=== PATIENT | female | born 1985 | race Caucasian/White ===

== ENCOUNTER → 2020-10-16 12:18 | Outpatient (BNVA) | payer OTHER, SELFPAY | PROVIDERS: PCP Nurse Practitioner Family; Visit Provider Surgery ==

== ENCOUNTER 2020-10-24 06:20 | Day surgery (SDC) | payer OTHER, SELFPAY ==
--- NOTE | 2020-10-23 17:43 | MHC.SHP ---
Pre-Procedural Eval Section B Chief Complaint: reflux Allergies: Allergies Allergy/AdvReac Type Severity Reaction Status Date / Time No Known Allergies Allergy Verified 10/16/20 13:54 Plan I have reviewed the history and physical and performed a pertinent physical examination on my patient. No changes have occurred unless specified.
[2020-10-24 06:45] VITALS: BP 130/85; PULSE 79; RESP 17; TEMP 36.2; O2SAT 97; BMI 51.7
--- NOTE | 2020-10-24 07:11 | HO.ANESPROP2 ---
HPI - Anesthesia Eval Consult details Narrative: 35 yo female patient here for EGD PMFSH Active Problems Active Problems: All Active Problems (Updated 10/16/20 @ 13:09 by Gela Daniel MD) Hx of laparoscopic gastric banding (Acute) Morbid obesity due to excess calories (Acute) BMI 50.0-59.9, adult (Acute) Preoperative examination (Acute) Shortness of breath (Acute) Past Medical History Medical History Morbid obesity due to excess calories Polycystic ovarian syndrome Family History Family History Mother No problems noted. Father Hypertension Brother Hypertension Son No problems noted. Son No problems noted. Family history of problems with anesthesia: No Surgical History Surgical History H/O vein stripping History of tubal ligation Hx of section Hx of colonoscopy Hx of laparoscopic gastric banding Hx of wisdom tooth extraction History of Problems with Anesthesia: No Social History Social History Alcohol intake: current Alcohol intake frequency: does not drink Smoking Status: Never smoker Use of substances other than those prescribed or required for medical reasons: No Advance Directives: No Advance Directives Information Provided: Yes Recently lost weight without trying: No Meds Allergies Allergy/AdvReac Type Severity Reaction Status Date / Time No Known Allergies Allergy Verified 10/16/20 13:54 Home Medications Medication Instructions Recorded Confirmed Last Taken Type levonorgestrel 20 mcg/24 hours (6 INTRAUTERINE 10/16/20 10/16/20 Unknown History yrs) 52 mg intrauterine device Exam Exam Date and Time: October 24, 2020 0711 Height,Weight and Vital Signs: Height 5 ft 8 in Weight 154.221 kg Last Vital Signs Temp 97.2 F 10/24/20 06:45 Pulse 79 10/24/20 06:45 Resp 17 10/24/20 06:45 BP 130/85 10/24/20 06:45 Pulse Ox 97 10/24/20 06:45 Pertinent Lab Results Pertinent Lab Results: Lab Results 10/24/20 Range/Units 06:40 COVID-19 ([facility]) Negative (Negative) COVID-19 Clin Com See Note Airway Mallampati Class: III TM Dist: >3cm Neck ROM: Full Heart: RRR Lungs: CTAB Assessment and Plan Assessment Anesthesia Assessment: Anesthesia Plan Discussed and Chart Reviewed Final Anesthetic Review NPO: Yes ASA Class: III Final Preanesthetic Review: No Changes in Pt Med Stat, Meds/Allgs Chart Reviewed, Consent Obtained/Reviewed and Anes Risks/Benef Reviewed Patient Risk: Intermediate Procedure Risk: Low Assessment/Block/Sedation in SS: Assess/Block/Sedation-SS Anesthetic Plan Anesthetic Plan: MAC: Disposition: Standard PACU
[2020-10-24 07:12] LABS: COVID-19 Test Negative (Negative)
--- NOTE | 2020-10-24 07:57 | PM.OP ---
Brief Operative Note Date of Service: 10/24/20 Pre-op diagnosis: Morbid obesity, history of gastric band with weight gain Post-op diagnosis: other (Normal gastric band , antral gastritis) Procedure: Esophagogastroduodenoscopy, antral biopsy x2 Implants: None Surgeon: Gela Daniel MD Anesthesia: MAC Estimated blood loss (mL): 0 Pathology: other (Antrum) Condition: stable Disposition: PACU
--- NOTE | 2020-10-24 08:15 | W.PM.OPN ---
Operative Note Operative Note Date of Service: 10/24/20 Narrative: Patient was brought into the endoscopy suite placed on stretch in the left lateral decubitus position. A safety time-out was performed. A bite block was placed between the teeth. Propofol was administered by the nurse door serviceman. Once the patient was adequately sedated a gastroscope was placed into the posterior oropharynx and passed down the esophagus evaluate esophageal mucosa which was normal. The GE junction was located at 34 cm from the incisors. Gastric band was located at 36 cm from the incisors. There was no evidence of gastric band erosion or ulceration of the mucosa. There was no evidence of gastric band slippage. The gastroscope was passed distally and then retroflexed there was no evidence again of gastric band erosion. The mucosa was healthy and pink. The gastroscope was passed to the pre-pyloric region. There was some evidence of granularity and linear erythema in the antrum which was biopsied x2 and sent for pathology. The gastroscope was passed through the pylorus down to the 3rd portion of the duodenum all of which was normal. All of these portions of the upper endoscopy were document using photo documentation. The gastroscope was retracted back in the stomach stomach was desufflated and the gastroscope was removed without difficulty. Patient was awake and in stable condition prior to transfer to the recovery room there, were no complications.
[2020-10-24 08:25] VITALS: BP 115/77; PULSE 104; RESP 16; TEMP 36.2; O2SAT 95
[2020-10-24 08:41] VITALS: BP 121/82; PULSE 90; RESP 18; TEMP 36.2; O2SAT 98
== END 2020-10-24 09:10 | disposition home or self-care (01) ==
PROVIDERS: PCP Nurse Practitioner Family; Visit Provider Surgery
PROC: 0DJ08ZZ Inspection of Upper Intestinal Tract, Via Natural or Artificial Opening Endoscopic (ICD-10-PCS; CPT 43235; principal; 2020-10-24 07:30)
DX: K21.9 Gastro-esophageal reflux disease without esophagitis (principal); K29.50 Unspecified chronic gastritis without bleeding; R06.02 Shortness of breath; Z98.84 Bariatric surgery status; E66.01 Morbid (severe) obesity due to excess calories; Z68.43 Body mass index [BMI] 50.0-59.9, adult; Z98.51 Tubal ligation status
CPT/HCPCS: 43239; 36415; 87635; 88305; 88342; J3010

== ENCOUNTER 2020-10-29 08:10 | Outpatient (REF) | payer OTHER, SELFPAY ==
--- NOTE | ~2020-10-29 | XR_ITS ---
EXAMINATION: XR CHEST CLINICAL INFORMATION: Shortness of breath COMPARISON: None TECHNIQUE: 2 views of the chest were obtained. FINDINGS: The cardiac and mediastinal contours are normal. The lungs are clear. There is no pleural effusion or pneumothorax. Bony structures are unremarkable. Gastric lap band is noted. XR/XR chest 2V IMPRESSION: No evidence for acute disease in the chest.
--- NOTE | 2020-10-29 08:18 | ECG_ITS ---
Test Reason : SOB Blood Pressure : / mmHG Vent. Rate : 064 BPM Atrial Rate : 064 BPM P-R Int : 150 ms QRS Dur : 078 ms QT Int : 384 ms P-R-T Axes : 033 025 022 degrees QTc Int : 396 ms Normal sinus rhythm with sinus arrhythmia Normal ECG No previous ECGs available Referred By: Gela Daniel Electronically Signed By:MELI CASEY
[2020-10-29 09:22] LABS: MANUAL DIFF FLAG NO
[2020-10-29 09:30] LABS: Basophils Percent Auto 0.4 % (0-2); Eosinophils Absolute Auto 0.2 X10*3/uL (0.0-0.4); Eosinophils Percent Auto 2.2 % (0-4); Hematocrit 43.3 % (37-47); Hemoglobin 13.9 g/dl (12.0-16.0); Imm Gran Abs Auto 0.03 X10*3/uL (0.00-0.03); Imm Gran Pct Auto 0.4 % (0.0-0.4); Lymphocytes Absolute Auto 1.6 X10*3/uL (1.2-4.9); Lymphocytes Percent Auto 22.6 % (20-40); Mean Corpuscular HGB Conc 32.1 g/dl (31.0-35.0); Mean Corpuscular Hemoglobin 27.3 pg (27.0-33.0); Mean Corpuscular Volume 84.9 fL (80-98); Mean Platelet Volume 11.3 fL (9.4-12.3); Monocytes Absolute Auto 0.4 X10*3/uL (0.1-1.2); Monocytes Percent Auto 5.6 % (2-11); Neutrophils Absolute Auto 4.9 X10*3/uL (2.0-8.3); Neutrophils Percent Auto 68.8 % (45-73); Platelet Count 253 X10*3/uL (160-400); Red Cell Distribution Width 12.5 % (11.0-16.0); White Blood Count 7.2 X10*3/uL (4.8-10.8)
[2020-10-29 09:55] LABS: Alanine Aminotransferase 22 U/L (0-31); Albumin Level 4.1 g/dL (3.5-5.0); Alkaline Phosphatase 60 U/L (39-117); Anion Gap 9 (12-20); Aspartate Amino Transferase 21 U/L (5-31); Bilirubin Total 0.9 mg/dL (0.0-1.0); Blood Urea Nitrogen 13 mg/dL (9-16); Calcium 9.4 mg/dL (8.4-10.2); Carbon Dioxide 30 mmol/L (22-29); Chloride 103 mmol/L (96-108); Cholesterol 130 mg/dL; Estimated Glomerular Filt Rate > 60; Glucose Fasting 83 mg/dL (60-99); HDL Cholesterol 37 mg/dL; Iron 73 mcg/dL (30-160); LDL Cholesterol Calculated 79 mg/dl; Percent Iron Saturation 26 % (15-50); Potassium 4.2 mmol/L (3.3-5.1); Sodium 138 mmol/L (135-145); Total Iron Binding Capacity 281 mcg/dL (228-428); Total Protein 6.9 g/dL (6.5-8.0); Triglycerides 72 mg/dL; Unsaturated Iron Binding 208 ug/dL
[2020-10-29 10:06] LABS: Thyroid Stimulating Hormone 1.53 uIU/mL (0.32-4.0); Vitamin D 25-OH Total 18.9 ng/mL (>30)
[2020-10-29 10:07] LABS: Estimated Average Glucose 94 mg/dL; Hemoglobin A1C 150.5218 umol/L; Hemoglobin A1c % 4.9 %
[2020-10-29 10:51] LABS: Vitamin B12 539 pg/mL (200-900)
[2020-10-30 15:17] LABS: H Pylori Breath Test NOT DETECTED (NOT DETECTED)
[2020-10-30 17:16] LABS: Calcium (PTHI) 9.4 mg/dL (8.6-10.2); PTHI 46 pg/mL (14-64)
[2020-10-31 17:31] LABS: Zinc 62 mcg/dL (60-130)
[2020-11-01 12:51] LABS: Vitamin B1 9 nmol/L (8-30)
[2020-11-02 10:37] LABS: Vitamin A 32 mcg/dL (38-98)
== END 2020-10-29 08:11 | disposition home or self-care (01) ==
LOC: HO.LAB 08:10
PROVIDERS: PCP Nurse Practitioner Family; Visit Provider Surgery
DX: Z01.818 Encounter for other preprocedural examination (principal); K91.2 Postsurgical malabsorption, not elsewhere classified; R06.02 Shortness of breath; Z90.3 Acquired absence of stomach [part of]
CPT/HCPCS: 36415; 71046; 80053; 80061; 82306; 82607; 83013; 83036; 83540; 83970; 84425; 84443; 84590; 84630; 85025; 86140; 93005

== ENCOUNTER → 2020-11-02 08:43 | Outpatient (BNVA) | payer OTHER, SELFPAY | PROVIDERS: PCP Nurse Practitioner Family; Visit Provider Surgery ==

== ENCOUNTER → 2020-11-29 08:15 | Outpatient (BNVA) | payer OTHER, SELFPAY | PROVIDERS: PCP Nurse Practitioner Family; Visit Provider Dietitian, Registered | DX: E66.01 Morbid (severe) obesity due to excess calories (principal); Z68.43 Body mass index [BMI] 50.0-59.9, adult | CPT/HCPCS: 97802 ==

== ENCOUNTER → 2020-12-28 15:04 | Outpatient (BNVA) | payer OTHER, SELFPAY | PROVIDERS: PCP Nurse Practitioner Family; Referring Provider Nurse Practitioner Family; Visit Provider Surgery ==

== ENCOUNTER 2021-01-23 08:06 | Outpatient (REF) | payer OTHER, SELFPAY ==
[2021-01-23 11:51] LABS: Vitamin D 25-OH Total 32.5 ng/mL (>30)
[2021-01-28 04:06] LABS: Vitamin A 28 mcg/dL (38-98)
== END 2021-01-23 08:07 | disposition home or self-care (01) ==
LOC: HO.HMGCLDS 08:06
PROVIDERS: PCP Nurse Practitioner Family; Visit Provider Surgery
DX: Z01.818 Encounter for other preprocedural examination (principal); E50.9 Vitamin A deficiency, unspecified; E55.9 Vitamin D deficiency, unspecified
CPT/HCPCS: 36415; 82306; 84590

== ENCOUNTER → 2021-01-28 11:07 | Outpatient (BNVA) | payer OTHER, SELFPAY | PROVIDERS: PCP Nurse Practitioner Family; Visit Provider Surgery ==

== ENCOUNTER → 2021-02-04 14:44 | Outpatient (BNVA) | payer OTHER, SELFPAY | PROVIDERS: PCP Nurse Practitioner Family; Visit Provider Surgery | DX: Z01.818 Encounter for other preprocedural examination (principal); R06.02 Shortness of breath ==

== ENCOUNTER → 2021-02-08 13:34 | Outpatient (BNVA) | payer OTHER, SELFPAY | PROVIDERS: PCP Nurse Practitioner Family; Visit Provider Physician Assistant ==

== ENCOUNTER 2021-02-14 06:16 | Inpatient (IN) | payer OTHER, SELFPAY ==
--- NOTE | 2021-02-04 15:25 | ECG_ITS ---
Test Reason : SOB Blood Pressure : / mmHG Vent. Rate : 082 BPM Atrial Rate : 082 BPM P-R Int : 144 ms QRS Dur : 082 ms QT Int : 372 ms P-R-T Axes : 042 042 043 degrees QTc Int : 434 ms Normal sinus rhythm with sinus arrhythmia Normal ECG When compared with ECG of 29-OCT-2020 08:39, No significant change was found Referred By: Gela Daniel Electronically Signed By:MERNA WILSON MD
[2021-02-04 16:05] LABS: MANUAL DIFF FLAG NO
[2021-02-04 16:08] LABS: Basophils Percent Auto 0.4 % (0-2); Eosinophils Absolute Auto 0.1 X10*3/uL (0.0-0.4); Eosinophils Percent Auto 1.1 % (0-4); Hematocrit 41.3 % (37-47); Hemoglobin 13.6 g/dl (12.0-16.0); Imm Gran Abs Auto 0.02 X10*3/uL (0.00-0.03); Imm Gran Pct Auto 0.2 % (0.0-0.4); Lymphocytes Percent Auto 21.8 % (20-40); Mean Corpuscular HGB Conc 32.9 g/dl (31.0-35.0); Mean Corpuscular Hemoglobin 28.3 pg (27.0-33.0); Mean Platelet Volume 11.2 fL (9.4-12.3); Monocytes Absolute Auto 0.5 X10*3/uL (0.1-1.2); Monocytes Percent Auto 5.1 % (2-11); Neutrophils Absolute Auto 6.4 X10*3/uL (2.0-8.3); Neutrophils Percent Auto 71.4 % (45-73); Platelet Count 239 X10*3/uL (160-400)
[2021-02-04 16:16] LABS: Glucose Urine UA NEG (NEG); Leukocyte Esterase Urine TRACE (NEG); Nitrite Urine NEG (NEG); Specific Gravity - Urine >= 1.030 (1.005-1.025); UACC Culture Trigger YES; Urine Blood NEG (NEG); Urine Ketones NEG (NEG); Urine Protein NEG (NEG-TRACE)
[2021-02-04 16:19] LABS: Appearance Urine HAZY; Color Urine YELLOW; UPreg QC Valid YES; Urine Pregnancy NEGATIVE (NEGATIVE)
[2021-02-04 16:24] LABS: INTERNATIONAL NORM RATIO 1.2 (0.9-1.1); Prothrombin Time 13.2 SEC (9.9-13.0)
[2021-02-04 16:26] LABS: Albumin Level 4.2 g/dL (3.5-5.0); Anion Gap 12 (12-20); Blood Urea Nitrogen 10 mg/dL (9-16); Calcium 9.1 mg/dL (8.4-10.2); Carbon Dioxide 27 mmol/L (22-29); Chloride 105 mmol/L (96-108); Estimated Glomerular Filt Rate > 60; Glucose Random 86 mg/dL (60-115); Potassium 4.1 mmol/L (3.3-5.1); Sodium 140 mmol/L (135-145)
[2021-02-04 16:27] LABS: Partial Thromboplastin Time 34.8 SEC (24.1-38.0)
[2021-02-04 16:42] LABS: Bacteria Urine TRACE /LPF; Mucus Urine 2+ /LPF; Squamous Epithelial Cell Urine 3+ /LPF
[2021-02-06 13:17] VITALS: BMI 47.5
--- NOTE | 2021-02-13 09:46 | HO.ANESPROP2 ---
Documented by User: Aubrie Taylor NP 02/13/21 09:47 HPI - Anesthesia Eval Consult details Narrative: 35yo F for Lap Band Removal Laparosopic,conversion to Gastrectomy Sleeve, EGD, Poss Diaphragmatic Hernia, Poss Ventral Hernia, Poss open PMFSH Active Problems Active Problems: All Active Problems (Updated 02/06/21 @ 13:20 by Laurie Dennis RN) Shortness of breath (Acute) Preoperative examination (Acute) BMI 50.0-59.9, adult (Acute) Mild depression (Acute) Vitamin D deficiency (Acute) Vitamin A deficiency (Acute) BMI 45.0-49.9, adult (Acute) Morbid obesity due to excess calories (Acute) Hx of laparoscopic gastric banding (Acute) Past Medical History Medical History COVID-19 vaccine series completed Morbid obesity due to excess calories Polycystic ovarian syndrome Family History Family History Mother No problems noted. Father Hypertension Brother Hypertension Son No problems noted. Son No problems noted. Family history of problems with anesthesia: No Surgical History Surgical History H/O vein stripping History of tubal ligation Hx of section Hx of colonoscopy Hx of laparoscopic gastric banding Hx of wisdom tooth extraction History of Problems with Anesthesia: No Social History Social History (Updated 02/04/21 @ 15:18 by Gela Daniel MD) Are you a primary manager progressive care to a significant other at home: No Do you presently have visiting nurse or other home services: No Alcohol intake: former Patient Tobacco Use Status: Never used Tobacco Use of substances other than those prescribed or required for medical reasons: Yes Substance Use Type Other:: advised to hold 3-5 days pre-op Substance Use Frequency: Occasionally Have you been hit, kicked, punched, or otherwise hurt by someone within the past year? If so, by whom?: No Are you DNR?: No Advance Directives: Yes Advance Directives Information Provided: Yes (states is [place] [facility] [place] Advance Directives on File: No Advance Directives Date on File: 02/14/21 Recently lost weight without trying: No Eating poorly because of decreased appetite: No Nutrition Risks: No Nutritional Risk Patient : No FDLMP: 02/02/21 : No Poor oral hygiene: No Meds Allergies Allergy/AdvReac Type Severity Reaction Status Date / Time No Known Allergies Allergy Verified 02/14/21 06:15 Home Medications Medication Instructions Recorded Confirmed Last Taken Type levonorgestrel 20 mcg/24 hours (6 20 mcg INTRAUTERINE CONT 10/16/20 02/06/21 Unknown History yrs) 52 mg intrauterine device (Mirena) Exam Exam Date and Time: February 13, 2021 0946 Height,Weight and Vital Signs: Height 5 ft 8 in Weight 141.974 kg Pertinent Lab Results Pertinent Lab Results: Laboratory Tests 02/04/21 02/04/21 02/04/21 15:31 15:31 15:31 WBC 9.0 RBC 4.80 Hgb 13.6 Hct 41.3 MCV 86.0 MCH 28.3 MCHC 32.9 RDW 13.0 Plt Count 239 MPV 11.2 Immature Gran % (Auto) 0.2 Neut % (Auto) 71.4 Lymph % (Auto) 21.8 Woodward % (Auto) 5.1 Eos % (Auto) 1.1 Baso % (Auto) 0.4 Lymph # (Auto) 2.0 Woodward # (Auto) 0.5 Eos # (Auto) 0.1 Baso # (Auto) 0.0 Abs Immat Gran (auto) 0.02 Absolute Neuts (auto) 6.4 Absolute Nucleated RBC 0.000 Nucleated RBC % (auto) 0.0 PT 13.2 H INR 1.2 H APTT 34.8 Sodium 140 Potassium 4.1 Chloride 105 Carbon Dioxide 27 Anion Gap 12 BUN 10 Creatinine 0.84 Estim Creat Clear Calc TNP Estimated GFR > 60 Random Glucose 86 Calcium 9.1 Albumin 4.2 Urine Color Urine Appearance Urine pH Ur Specific Lawn Urine Protein Urine Glucose (UA) Urine Ketones Urine Blood Urine Nitrite Ur Leukocyte Esterase Urine RBC Urine WBC Ur Squamous Epith Cells Urine Bacteria Urine Mucus Urine Test Blood Type Antibody Screen 02/04/21 02/04/21 02/04/21 15:31 15:40 15:40 WBC RBC Hgb Hct MCV MCH MCHC RDW Plt Count MPV Immature Gran % (Auto) Neut % (Auto) Lymph % (Auto) Woodward % (Auto) Eos % (Auto) Baso % (Auto) Lymph # (Auto) Woodward # (Auto) Eos # (Auto) Baso # (Auto) Abs Immat Gran (auto) Absolute Neuts (auto) Absolute Nucleated RBC Nucleated RBC % (auto) PT INR APTT Sodium Potassium Chloride Carbon Dioxide Anion Gap BUN Creatinine Estim Creat Clear Calc Estimated GFR Random Glucose Calcium Albumin Urine Color YELLOW Urine Appearance HAZY Urine pH 6.0 Ur Specific Lawn >= 1.030 H Urine Protein NEG Urine Glucose (UA) NEG Urine Ketones NEG Urine Blood NEG Urine Nitrite NEG Ur Leukocyte Esterase TRACE H Urine RBC 1-4 Urine WBC 10-14 H Ur Squamous Epith Cells 3+ Urine Bacteria TRACE Urine Mucus 2+ Urine Test NEGATIVE Blood Type O Positive Antibody Screen NEGATIVE Narrative Narrative: EKG 01/2021 Vent. Rate : 082 BPM ? ? Atrial Rate : 082 BPM ?? P-R Int : 144 ms? QRS Dur : 082 ms ? ? QT Int : 372 ms ? ? ? P-R-T Axes : 042 042 043 degrees ?? QTc Int : 434 ms ? Normal sinus rhythm with sinus arrhythmia Normal ECG When compared with ECG of 29-OCT-2020 08:39, No significant change was found Assessment and Plan Assessment Anesthesia Assessment: Chart Reviewed Final Anesthetic Review Family History of Problems with Anesthesia: No History of Problems with Anesthesia: No Documented by User: Tato Curry MD 02/14/21 08:21 [facility] Past Medical History Medical History COVID-19 vaccine series completed Morbid obesity due to excess calories Polycystic ovarian syndrome Family History Family History Mother No problems noted. Father Hypertension Brother Hypertension Son No problems noted. Son No problems noted. Surgical History Surgical History H/O vein stripping History of tubal ligation Hx of section Hx of colonoscopy Hx of laparoscopic gastric banding Hx of wisdom tooth extraction Social History Social History (Updated 02/04/21 @ 15:18 by Gela Daniel MD) Are you a primary manager progressive care to a significant other at home: No Do you presently have visiting nurse or other home services: No Alcohol intake: former Patient Tobacco Use Status: Never used Tobacco Use of substances other than those prescribed or required for medical reasons: Yes Substance Use Type Other:: advised to hold 3-5 days pre-op Substance Use Frequency: Occasionally Have you been hit, kicked, punched, or otherwise hurt by someone within the past year? If so, by whom?: No Are you DNR?: No Advance Directives: Yes Advance Directives Information Provided: Yes (states is -not on file [facility]-will bring DOS) Advance Directives on File: No Advance Directives Date on File: 02/14/21 Recently lost weight without trying: No Eating poorly because of decreased appetite: No Nutrition Risks: No Nutritional Risk Patient : No FDLMP: 02/02/21 : No Poor oral hygiene: No Meds Allergies Allergy/AdvReac Type Severity Reaction Status Date / Time No Known Allergies Allergy Verified 02/14/21 06:15 Home Medications Medication Instructions Recorded Confirmed Last Taken Type levonorgestrel 20 mcg/24 hours (6 20 mcg INTRAUTERINE CONT 10/16/20 02/06/21 Unknown History yrs) 52 mg intrauterine device (Mirena) Exam Airway Mallampati Class: I TM Dist: >3cm Neck ROM: Full Loose/Missing/Broken Teeth: No Assessment and Plan Assessment Anesthesia Assessment: Anesthesia Plan Discussed Final Anesthetic Review NPO: Yes ASA Class: III Final Preanesthetic Review: No Changes in Pt Med Stat, Meds/Allgs Chart Reviewed, Consent Obtained/Reviewed and Anes Risks/Benef Reviewed Patient Risk: High Procedure Risk: Intermediate Anesthetic Plan Anesthetic Plan: GA Disposition: Standard PACU
[2021-02-14] VITALS (11 sets, daily range): BP systolic 129–155; BP diastolic 69–93; PULSE 65–101; RESP 15–24; TEMP 36.1–36.7; O2SAT 93–99
--- NOTE | 2021-02-14 06:33 | MHC.SHP ---
Pre-Procedural Eval Section A Date of Service: 02/14/21 Section B Chief Complaint: Status post laparoscopic removal of gastric band.. Allergies: Allergies Allergy/AdvReac Type Severity Reaction Status Date / Time No Known Allergies Allergy Verified 02/14/21 06:15 Plan I have reviewed the history and physical and performed a pertinent physical examination on my patient. No changes have occurred unless specified.
[2021-02-14 06:38] LABS: COVID-19 Test Negative (Negative); IDNOW Serial# 9DD0AD1C
[2021-02-14] MEDS: Lactated Ringers 1,000 ML 100 ML IVCONT ×3 (06:43→19:27)
--- NOTE | 2021-02-14 08:45 | PM.OP ---
Brief Operative Note Date of Service: 02/14/21 Pre-op diagnosis: Morbid obesity, BMI 47.6, history of gastric band Post-op diagnosis: other (Same and hiatal hernia) Procedure: Laparoscopic removal of gastric banding, conversion to sleeve gastrectomy, hiatal hernia repair, Kaylah block, and intraoperative endoscopy Implants: covidien isis Surgeon: Gela Daniel MD Anesthesia: GETA Was an Foreign Language Instructor used for this Procedure?: No Foreign Language Instructor: Mima Mansfield Estimated blood loss (mL): 20 Pathology: other (Partial gastrectomy) Condition: stable Disposition: PACU
--- NOTE | 2021-02-14 08:46 | W.PM.OPN ---
Operative Note Operative Note Date of Service: 02/14/21 Narrative: Patient was brought into the operating room and placed on the operating room table in the supine position. General anesthesia was induced. Normal DVT prophylaxis was instituted and the patient received 2 grams of cefotetan preoperatively. The abdomen was then prepped and draped in the normal sterile fashion. A safety time-out was performed. A mixture of 1% lidocaine with epinephrine and ?% Marcaine plain was used to anesthetize the planned incision site in the left upper quadrant. A #11 scalpel was used to make a 5 mm left upper quadrant transverse incision through which a veress needle was placed. Three pops were heard going through the fascia. A saline drop test was used to confirm that the veress needle was intraabdominal. An optiview technique was then used to place a 5mm port in the left upper quadrant. A 5 mm 30 degree laproscope was then placed through this port and the abdominal cavity was surveyed and was normal. The patient was placed in reverse Trendelenburg positioning. A franck liver retractor was then placed in the subxyphoid position and it was used to hold up the left lobe of the liver to the abdominal wall. This was secured to the bed using the liver retractor ryan. A VIVIANA block was then performed for pain control on the right side of the abdomen. A 5 mm port was placed in the right upper quadrant near the falciform ligament. A 15 mm port was then placed in the mid epigastrium adjacent to the gastric band port. One additional 5 mm port was placed in the left upper quadrant just to the left of the placement of the first port. I then performed a VIVIANA block on the left side of the abdomen. We cut the gastric band tubing and then dissected the capsule overlying the gastric band. We then on buckle the gastric band removed from around the stomach and removed from the abdomen through the 15 mm port site. We then took down the gastric fundoplication to straighten out the stomach in its entirety. I then removed the epigastric fat pad; there was a small anterior hiatal hernia noted. I reapproximated the left and right crura with a total of 2 stitches of 2-0 ethibond and a laparoscopic knot pusher. There was no residual hiatal hernia. I then opened up the angle of His. We then gained entry into the lesser sac about 4-5 cm from the pylorus. I had anesthesia place a 34 Slovak orogastric tube into the distal antrum to use as a sizing tool for gastric pouch size. I divided the short gastric vessels up to the angle of His. We then started the creation of the gastric pouch by firing a 60 mm purple load endostapler up the stomach about 4-5 cm from the pylorus. We completed the creation of the gastric pouch using a total of 4 firings of a 60 mm purple load stapler. We had anesthesia remove the orogastric tube, then we clamped across the distal antrum using a fired 60 mm endostapler. We flattened the patient and then instilled normal saline surrounding the newly created staple line. I then performed an on-table endoscopy. I passed the gastroscopy into the posterior oropharynx and down the esophagus evaluating the esophageal mucosa which was normal. There was no evidence of hiatal hernia. I passed the gastroscope into the gastric pouch and insufflated the gastric pouch. There was healthy pink mucosa and no evidence of active bleeding. There was no evidence of leak on laparoscopy. I desufflated the gastric pouch and removed the endoscope. I removed the endostapler from the abdomen and suctioned the fluid from the left upper quadrant. I then removed the partial gastrectomy specimen through the epigastric 15 mm port site. I reapproximated the 15 mm port using a 0 maxon suture with a laparoscopic suture passer. I instilled local anesthetic into the fascial closure site and tied the suture down at a pressure of 8-10 mm of Hg. There was no residual fascial defect. We removed the liver retractor and the left upper quadrant 5 mm ports under direct visualization. There was no evidence of any active bleeding. I desufflated the abdomen through the last remaining port and removed the laparoscope and 5 mm port. We then removed the subcutaneous port on the fascia of the abdominal wall. We passed this off the field. We reapproximated the deep dermal tissues in the largest incision with the subcutaneous port was located 1st with 3-0 Vicryl sutures. We reapproximated all incisions with a 4-0 monocryl subcuticular stitch. We cleaned and dried the abdominal skin and applied dermabond skin glue. All count were correct at the end of the case. The patient was awake and in stable condition prior to extubation and transfer to the recovery room.
--- NOTE | 2021-02-14 08:50 | P.PNGS_ITS ---
Subjective Subjective Date of Service: 02/15/21 Interval history: This is a 35-year-old lady who underwent a laparoscopic removal of gastric band conversion to sleeve gastrectomy with hiatal hernia repair. She is on postoperative day 1. Doing well. She is tolerating stage III diet without difficulty. She has been up and ambulating using incentive spirometer. Patient's vital signs are within normal limits for postoperative day 1. She denies any nausea or vomiting. Physical Exam Vital Signs: Vital Signs: Last Vital Signs Temp 97.7 F 02/14/21 06:40 Pulse 87 02/14/21 06:40 Resp 16 02/14/21 06:40 BP 129/72 02/14/21 06:40 Pulse Ox 99 02/14/21 06:40 Body Mass Index 47.5 Const: General: cooperative, healthy appearing, comfortable and no acute distress GI: Other: Abdomen is soft obese nondistended. There is mild appropriate incisional tenderness to palpation. Incisions are clean dry intact with De rmabond in place. There is no ecchymosis or erythema or drainage. Extrem: Other: Bilateral lower extremities are warm well-perfused without edema. There is no tenderness to palpation. Procedures Date of Service Date of Service: 02/15/21 Progress Note: A&P Assessment and plan (1) Status post laparoscopic sleeve gastrectomy: Status: Acute Assessment and Plan: This is a 35-year-old lady on postoperative day 1. Status post gastric band removal conversion to sleeve gastrectomy with hiatal hernia repair doing well on postoperative day 1. Patient is tolerating stage III diet without difficulty. She will be discharged home to follow up with me as an outpatient in 2 weeks time frame. (2) History of removal of laparoscopic gastric banding device: Status: Acute (3) Morbid obesity due to excess calories: Status: Acute (4) BMI 45.0-49.9, adult: Status: Acute (5) History of repair of hiatal hernia: Status: Acute Fall Risk Details Current Medications: Current Medications Generic Name Dose Route Start Last Admin Trade Name Freq PRN Reason Stop Dose Admin Hydromorphone HCl 0.5 mg 02/14/21 08:21 Hydromorphone Hcl 0.5 Mg/0.5 Ml Syringe IVPUSH Q5M PRN Pain, Severe (Pain Scale 7-10) Protocol Lactated Ringer's 1,000 mls @ 100 mls/hr 02/14/21 06:15 02/14/21 06:43 Lr IVCONT 100 mls/hr .Q10H CHELY Administration Promethazine HCl 12.5 mg/ 50.5 mls @ 202 mls/hr 02/14/21 08:21 Sodium Chloride IV ONCE PRN Nausea and Vomiting Ondansetron HCl 4 mg 02/14/21 08:21 Ondansetron Hcl 4 Mg/2 Ml Vial IVPUSH ONCE PRN Nausea and Vomiting Time Spent With Patient Time: Total time spent is greater than 50% in coordination of care (as documented) at patient's floor/unit and/or counseling patient: Time with patient: less than 15 minutes Quality Stroke Does the patient have a stroke diagnosis?: No VTE Prior VTE?: No VTE Risk Level:: Surgical - moderate VTE Device Contraindication: N/A - Device Ordered VTE Drug Contraindication: Treatment Not Indicated
--- NOTE | 2021-02-14 08:53 | P.DS_ITS ---
DS: Providers Provider Date of Service: 02/15/21 Date of admission: 02/14/21 06:16 Date of discharge: 02/15/21 Primary care physician: Vandana Escalera NP Admitting clinician: Gela Daniel Attending physician on admission: Gela Daniel Attending physician on discharge: Gela Daniel Discharging clinician: Gela Daniel DS: Diagnosis Discharge Diagnosis (1) Status post laparoscopic sleeve gastrectomy: Status: Acute (2) History of removal of laparoscopic gastric banding device: Status: Acute (3) Morbid obesity due to excess calories: Status: Acute (4) BMI 45.0-49.9, adult: Status: Acute DS: Medications Discharge Medications Home Medications: Home Medications Medication Instructions Recorded Confirmed levonorgestrel 20 mcg/24 hours (6 20 mcg INTRAUTERINE CONT 10/16/20 02/06/21 yrs) 52 mg intrauterine device (Mirena) Previous Rx's Medication Instructions Recorded cholecalciferol (vitamin D3) 1,250 1,250 mcg PO QWEEK #4 cap 10/30/20 mcg (50,000 unit) capsule phentermine 37.5 mg capsule 37.5 mg PO DAILY #30 cap 01/28/21 vitamin A palmitate 10,000 unit 20,000 unit PO DAILY 30 Days #60 01/28/21 tablet tab acetaminophen 500 mg tablet 1,000 mg PO Q6H PRN #30 tab 02/04/21 (Tylenol Extra Strength) docusate sodium 100 mg capsule 100 mg PO BID #30 cap 02/04/21 (Colace) famotidine 20 mg tablet (Pepcid AC) 20 mg PO DAILY #30 tab 02/04/21 ondansetron HCl 4 mg tablet 4 mg PO Q6H PRN #30 tab 02/04/21 (Zofran) simethicone 80 mg chewable tablet 80 mg PO TID-QID PRN #30 tab 02/04/21 (Gas Relief (simethicone)) DS: Summary Hospital Course Hospital Course: This is a 35-year-old lady who came in to [facility] as a same day admission patient on 02/14/2021 and underwent laparoscopic removal of gastric band conversion to sleeve gastrectomy, hiatal hernia repair, and intraoperative endoscopy. Patient underwent the procedure without difficulty. She was sent to the surgical floor overnight. Patient was started on a stage II bariatric diet which she tolerated well. Patient was up and ambulating using incentive spirometer. On postoperative day 1. The patient was noted to be doing well and was advanced to stage III diet which she tolerated well. Patient is postoperative day 1. vital signs were within normal limits and the patient was discharged home. Status at Discharge Functional status at discharge: independent ambulation Overall status at discharge: patient is back to baseline Time Spent with Patient Time attestation: Total time spent providing and/or coordinating discharge services: Discharge coordination time: Less than 30 minutes Quality: Stroke Does the patient have a stroke diagnosis?: No Physical Exam Vital Signs: Vital Signs: Last Vital Signs Temp 97.7 F 02/14/21 06:40 Pulse 87 02/14/21 06:40 Resp 16 02/14/21 06:40 BP 129/72 02/14/21 06:40 Pulse Ox 99 02/14/21 06:40 Body Mass Index 47.5 DS: Data Data Completed and Pending Labs on day of discharge: Laboratory Results - last 24 hr 02/14/21 06:12 COVID-19 (SKYLAR) Negative COVID-19 Clin Com See Note Discharge Plan Discharge Patient Disposition: Home, Self-Care Discharge Diagnosis: Status post gastric band removal and hiatal hernia repair and sleeve gastrectomy Referrals: Vandana Escalera NP [Primary Care Provider] - 1 Week Discharge Medications: Continued Mirena 20 mcg/24 hours (6 yrs) 52 mg intrauterine device 20 mcg intrauterine CONT RF: 0 acetaminophen [Tylenol Extra Strength] 500 mg tablet 1,000 mg PO Q6H PRN (Reason: pain) Qty: 30 RF: 1 famotidine [Pepcid AC] 20 mg tablet 20 mg PO DAILY Qty: 30 RF: 1 simethicone [Gas Relief (simethicone)] 80 mg tablet,chewable 80 mg PO TID-QID PRN (Reason: abdominal distention) Qty: 30 RF: 1 ondansetron HCl [Zofran] 4 mg tablet 4 mg PO Q6H PRN (Reason: nausea and vomiting) Qty: 30 RF: 1 docusate sodium [Colace] 100 mg capsule 100 mg PO BID Qty: 30 RF: 1 Discontinued cholecalciferol (vitamin D3) 1,250 mcg (50,000 unit) capsule 1,250 mcg PO QWEEK Qty: 4 RF: 0 phentermine 37.5 mg capsule 37.5 mg PO DAILY Qty: 30 RF: 0 vitamin A palmitate 10,000 unit tablet 20,000 unit PO DAILY 30 Days Qty: 60 RF: 1 Discharge Orders: Discharge Order (Routine); Ordered 02/15/21 Ordered By: Gela Daniel Diet: other Activity on Discharge: No heavy lifting Stand Alone Forms: Patient Portal Discharge page Activity Restrictions/Additional Instructions: No lifting greater than 5 lbs for the next 4 weeks. No driving within 24 hours of taking narcotic pain medications. If you do not move your bowels in the next 2 days, please take milk of magnesia over the counter or MiraLax. Please follow the post op diet and do not advance your diet until you are seen in the office in about 2 weeks. Please walk around your home every hour or two to prevent blood clots from forming in your legs. You do not need to wake from sleeping to walk. Please sleep in a bed or couch to prevent kinking at the hips and knees. Please take your incentive spirometer (your lung die inspector) home with you and use it for the next few days to prevent pneumonias. You may shower, no hot tubs, baths or swimming pools. Please call the office with any questions or concerns such as increasing abdominal pain, fever, chills, shortness of breath, chest pain, leg pain or swelling, or redness or drainage from your incisions. Please stay on stage 3 diet which includes sugar free clear liquids such as ice pops and jello and broth and crystal light. Avoid all carbonation. Please drink 2-3 protein shakes with at least 20-30 grams of protein daily or 2 of the celebrate 4:1 shakes which can be purchased in our office in addition to 1 other protein shake of your choice. celebrate shakes have all of the bariatric vitamins you need if you consume these shakes. If you are drinking other protein shakes, you will need to order the bariatric vitamin Opurity chewable online, or use the celebrate bariatric vitamin and an additional celebrate calcium daily which will provide all the vitamins you need. You may take the bariatric capsule vitamin in about 1 month. Please make sure you are consuming at least 40- 60 ounces of water in addition to your 2-3 protein shakes daily. You do not need to use the medicine cups to drink year shakes or water following discharge. Just drink slowly in order to ensure that she consume all of your liquids for the day. The medicine cups were only to teach you to drink slowly. They are not required at home. Do not hesitate to contact the office with any questions. Care Plan Goals: Weight loss in achievement of a BMI of 25 Health Concerns: Morbid obesity Plan of Treatment: Patient is status post weight loss surgery Assessment: Patient doing well status post laparoscopic removal of gastric band and conversion to sleeve gastrectomy.
[2021-02-14] MEDS: Famotidine/PF 20 MG/2 ML VIAL IVPUSH ×2 (11:12→21:13)
[2021-02-14] MEDS: ondansetron HCL 4 MG/2 ML VIAL IVPUSH ×2 (19:20→23:50)
[2021-02-14] MEDS: cefoTEtan disodium 2 GM in 0.9 % Sodium Chloride 50 ML IV (21:14)
[2021-02-14] MEDS: HYDROmorphone HCl 0.5 MG/0.5 ML SYRINGE IVPUSH (23:50)
[2021-02-15 03:37] VITALS: BP 125/71; PULSE 63; RESP 16; TEMP 36.6; O2SAT 97
[2021-02-15] MEDS: Lactated Ringers 1,000 ML 100 ML IVCONT (05:48)
[2021-02-15 06:27] LABS: MANUAL DIFF FLAG NO
[2021-02-15 06:34] LABS: Basophils Percent Auto 0.1 % (0-2); Eosinophils Percent Auto 0.1 % (0-4); Hematocrit 38.9 % (37-47); Hemoglobin 12.9 g/dl (12.0-16.0); Imm Gran Abs Auto 0.14 X10*3/uL (0.00-0.03); Imm Gran Pct Auto 0.9 % (0.0-0.4); Lymphocytes Absolute Auto 1.1 X10*3/uL (1.2-4.9); Lymphocytes Percent Auto 7.2 % (20-40); Mean Corpuscular HGB Conc 33.2 g/dl (31.0-35.0); Mean Corpuscular Hemoglobin 27.8 pg (27.0-33.0); Mean Corpuscular Volume 83.8 fL (80-98); Mean Platelet Volume 11.6 fL (9.4-12.3); Monocytes Absolute Auto 0.9 X10*3/uL (0.1-1.2); Monocytes Percent Auto 5.7 % (2-11); Neutrophils Absolute Auto 13.6 X10*3/uL (2.0-8.3); Platelet Count 265 X10*3/uL (160-400); Red Blood Count 4.64 X10*6/uL (4.20-5.50); Red Cell Distribution Width 12.6 % (11.0-16.0); White Blood Count 15.8 X10*3/uL (4.8-10.8)
[2021-02-15 07:12] LABS: Anion Gap 12 (12-20); Blood Urea Nitrogen 8 mg/dL (9-16); Calcium 9.3 mg/dL (8.4-10.2); Carbon Dioxide 26 mmol/L (22-29); Chloride 103 mmol/L (96-108); Creatinine Clr Calc Pharmacy 155.7; Estimated Glomerular Filt Rate > 60; Glucose Random 91 mg/dL (60-115); Potassium 4.2 mmol/L (3.3-5.1); Sodium 137 mmol/L (135-145)
[2021-02-15 07:45] VITALS: BP 135/85; PULSE 61; RESP 17; TEMP 36.4; O2SAT 99
[2021-02-15 08:21] VITALS: O2SAT 99
--- NOTE | 2021-02-15 09:10 | MHC.CM.PN ---
pt lives c her in their home. she reports she is independent in her care. she works a job and drives a car. pt's can help her c her needs if required. this will include a ride home at dc. pt denies the need for vna at dc. dc plan is home no svcs. cm to cont. to follow.
--- NOTE | 2021-02-15 12:15 | HO.POSTANES ---
Post Anesthesia Evaluation Post Anesthesia Evaluation Vital Signs: Vital Signs Temp Pulse Resp BP Pulse Ox 02/15/21 08:21 99 02/15/21 07:45 97.5 F 61 17 135/85 99 02/15/21 03:37 97.8 F 63 16 125/71 97 Anesthesia: General Endotracheal-GETA Mental Status: Awake Pain Control: Satisfactory Nausea/Vomiting: None Hydration: Adequate Anesthesia-Related Issues: No Anes. Related Issues
== END 2021-02-15 12:10 | disposition home or self-care (01) | DRG 403 ==
LOC: HO.SSSA 10:46 → HO.S3 11:11
PROVIDERS: Admitting Provider Surgery; PCP Nurse Practitioner Family; Visit Provider Surgery
PROC: 0DB64Z3 Excision of Stomach, Percutaneous Endoscopic Approach, Vertical (ICD-10-PCS; CPT 43774; principal; 2021-02-14 08:10)
DX: E66.01 Morbid (severe) obesity due to excess calories (principal); E28.2 Polycystic ovarian syndrome; Z68.42 Body mass index [BMI] 45.0-49.9, adult; Z20.822 Contact with and (suspected) exposure to COVID-19; Z98.84 Bariatric surgery status; K44.9 Diaphragmatic hernia without obstruction or gangrene; Z79.899 Other long term (current) drug therapy
CPT/HCPCS: 43774; 43775; 36415; 80048; 81001; 81025; 82040; 85025; 85610; 85730; 86850; 86900; 86901; 87086; 87635; 88307; 88342; 93005; 99024; J0131; J1100; J1170; J2250; J2405; J2550; J3010

== ENCOUNTER → 2021-02-28 07:57 | Outpatient (BNVA) | payer OTHER, SELFPAY | PROVIDERS: PCP Nurse Practitioner Family; Visit Provider Dietitian, Registered | DX: E66.01 Morbid (severe) obesity due to excess calories (principal); Z90.3 Acquired absence of stomach [part of]; Z98.84 Bariatric surgery status; Z71.3 Dietary counseling and surveillance | CPT/HCPCS: 97803 ==

== ENCOUNTER → 2021-03-25 09:25 | Outpatient (BNVA) | payer OTHER, SELFPAY | PROVIDERS: PCP Nurse Practitioner Family; Visit Provider Surgery ==

== ENCOUNTER 2022-09-26 09:02 | Outpatient (REF) | payer BC, SELFPAY ==
[2022-09-26 10:30] LABS: MANUAL DIFF FLAG NO
[2022-09-26 11:05] LABS: Basophils Percent Auto 0.5 % (0-2); Eosinophils Absolute Auto 0.5 X10*3/uL (0.0-0.4); Eosinophils Percent Auto 5.9 % (0-4); Hematocrit 39.7 % (37.0-47.0); Hemoglobin 13.1 g/dl (12.0-16.0); Imm Gran Abs Auto 0.02 X10*3/uL (0.00-0.03); Imm Gran Pct Auto 0.2 % (0.0-0.4); Lymphocytes Absolute Auto 1.9 X10*3/uL (1.2-4.9); Lymphocytes Percent Auto 23.6 % (20-40); Mean Corpuscular Hemoglobin 28.2 pg (27.0-33.0); Mean Corpuscular Volume 85.4 fL (80.0-98.0); Mean Platelet Volume 10.9 fL (9.4-12.3); Monocytes Absolute Auto 0.5 X10*3/uL (0.1-1.2); Monocytes Percent Auto 5.7 % (2-11); Neutrophils Absolute Auto 5.1 x10*3/uL (2.0-8.3); Neutrophils Percent Auto 64.1 % (45-73); Platelet Count 240 X10*3/uL (160-400); Red Blood Count 4.65 X10*6/uL (4.20-5.50); Red Cell Distribution Width 12.4 % (11.0-16.0)
[2022-09-26 11:19] LABS: Estimated Average Glucose 91 mg/dL; Hemoglobin A1c % 4.8 %
[2022-09-26 11:34] LABS: Alanine Aminotransferase 13 U/L (0-31); Alkaline Phosphatase 55 U/L (39-117); Anion Gap 12 (12-20); Aspartate Amino Transferase 18 U/L (5-31); Bilirubin Total 1.7 mg/dL (0.0-1.0); Blood Urea Nitrogen 9 mg/dL (9-16); Calcium 9.1 mg/dL (8.4-10.2); Carbon Dioxide 27 mmol/L (22-29); Chloride 104 mmol/L (96-108); Cholesterol 143 mg/dL; Estimated Glomerular Filt Rate > 60; Glucose Random 80 mg/dL (60-115); HDL Cholesterol 54 mg/dL; Iron 90 mcg/dL (30-160); LDL Cholesterol Calculated 77 mg/dl; Percent Iron Saturation 37 % (15-50); Potassium 4.1 mmol/L (3.3-5.1); Sodium 139 mmol/L (135-145); Total Iron Binding Capacity 246 mcg/dL (228-428); Total Protein 6.7 g/dL (6.5-8.0); Triglycerides 64 mg/dL; Unsaturated Iron Binding 156 ug/dL
[2022-09-26 12:02] LABS: Ferritin 157 ng/mL (10-122); Folate 6.3 ng/mL (> or = 4.0); Insulin 4 uU/mL (2-29); Vitamin B12 565 pg/mL (200-900); Vitamin D 25-OH Total 21.8 ng/mL (>30)
[2022-09-29 13:28] LABS: Calcium (PTHI) 9.4 mg/dL (8.6-10.2); PTHI 66 pg/mL (16-77)
[2022-09-30 23:57] LABS: Zinc 49 mcg/dL (60-130)
[2022-10-03 05:54] LABS: Vitamin B1 24 nmol/L (8-30)
[2022-10-03 17:44] LABS: Vitamin A 27 mcg/dL (38-98)
== END 2022-09-26 09:03 | disposition home or self-care (01) ==
LOC: HO.LAB 09:02
PROVIDERS: PCP Nurse Practitioner Family; Visit Provider Physician Assistant Surgical
DX: E66.9 Obesity, unspecified (principal); R11.10 Vomiting, unspecified; Z71.3 Dietary counseling and surveillance; Z98.84 Bariatric surgery status; Z98.890 Other specified postprocedural states; Z87.19 Personal history of other diseases of the digestive system; Z68.38 Body mass index [BMI] 38.0-38.9, adult; K91.2 Postsurgical malabsorption, not elsewhere classified
CPT/HCPCS: 36415; 80053; 80061; 82306; 82607; 82728; 82746; 83036; 83525; 83540; 83970; 84425; 84590; 84630; 85025; 86140

== ENCOUNTER 2024-12-26 13:02 | Outpatient (AMB) | payer BC, SELFPAY ==
--- NOTE | 2024-12-26 12:46 | A.OFFVIS_ITS ---
VS Expanded 12/26/24 12:48 Height 5 ft 8 in Weight 249 lb BMI 37.9 Intake Visit Reasons: (TV) PO LSG 02/14/21 Allergies No Known Allergies Allergy (Verified 09/26/22 09:25) Medication List - Last Reconciled 12/26/24 by DONALD Villatoro tirzepatide (weight loss) (Zepbound) 5 mg subcut QWEEK HPI Comments Details: This is a 39 yo female who is s/p conversion of gastric band to LSG 02/14/[address] Daniel. Weight loss of 5.4 lbs since last OV 2 years ago. Pt has started Zepbound and tolerating well. Present meal plan includes: eating less, trying to eat mostly protein Pt was at [employer] ordering a sandwich during our phone call I'm not good with cheeses, meats, nuts, yogurts restarted protein shakes does not take MVI She is interested in panniculectomy. She has excess skin of the abdomen that is causing rashes that are pretty co nstant - has tried OTC topical treatments as well as some prescription strength creams which have not resolved the rashes. She notices an unpleasant odor in the skin folds due to excess moisture, has to wash and clean more frequently. Has to wear looser pants so that the fabric of the clothing does not rub against the skin. 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 She experiences some upper back pain from the weight of the excess skin pulling on her torso. [facility] Medical History (Updated 12/26/24 @ 13:01 by DONALD Villatoro) COVID-19 vaccine series completed Polycystic ovarian syndrome Morbid obesity due to excess calories Surgical History H/O vein stripping History of removal of laparoscopic gastric banding device History of repair of hiatal hernia History of tubal ligation Hx of section Hx of colonoscopy Hx of laparoscopic gastric banding Hx of wisdom tooth extraction Status post laparoscopic sleeve gastrectomy Family History Mother No problems noted. Father Hypertension Brother Hypertension Son No problems noted. Son No problems noted. Social History Are you a primary health care analyst to a significant other at home: No Do you presently have visiting nurse or other home services: No Alcohol intake: former Patient Tobacco Use Status: Never used Tobacco Advance Directives Date on File: 02/14/21 service: No Current occupational status: employed Telehealth Telehealth Telehealth Platform: Telephone Location of provider rendering services: other Location of patient: address on file Patient Identification confirmed using: Name, : Yes Telehealth method: voice only Patient verbally consented to treatment: Yes Patient verbally consented to billing insurance company: Yes Patient informed of any privacy concerns related to visit: Yes Minutes spent on Phone/Video with Pt.: 16 Assessment & Plan Assessment & Plan (1) Status post laparoscopic sleeve gastrectomy: Code(s): Z98.84 - Bariatric surgery status Category: Surgical (2) Obesity: Code(s): E66.9 - Obesity, unspecified Category: Medical (3) Excess skin: Code(s): L98.7 - Excessive and redundant skin and subcutaneous tissue Category: Medical Plan Sent pt [employer] lenny info for help with a better meal plan. She is interested in panniculectomy. Discussed BMI requirements. She may be interested in consult with another surgeon after additional weight loss. Labs ordered. Clotrimazole ointment ordered for rashes of excess skin. RTC 3mo, encouraged pt to text me between appts with any questions. Orders: Orders Vitamin B1 Today E66.9 - Obesity, unspecified, Z98.84 - Bariatric surgery status Zinc Today E66.9 - Obesity, unspecified, Z98.84 - Bariatric surgery status Hemoglobin A1c Today E66.9 - Obesity, unspecified, Z98.84 - Bariatric surgery status Vitamin D 25-OH Total Today E66.9 - Obesity, unspecified, Z98.84 - Bariatric surgery status Ferritin Today E66.9 - Obesity, unspecified, Z98.84 - Bariatric surgery status TSH reflex Free T4 Today E66.9 - Obesity, unspecified, Z98.84 - Bariatric surgery status C Reactive Protein Today E66.9 - Obesity, unspecified, Z98.84 - Bariatric surgery status Vitamin A Today E66.9 - Obesity, unspecified, Z98.84 - Bariatric surgery status Vitamin B12 and Folate Today E66.9 - Obesity, unspecified, Z98.84 - Bariatric surgery status Comprehensive Met. Panel Today E66.9 - Obesity, unspecified, Z98.84 - Bariatric surgery status Complete Blood Count Auto Diff Today E66.9 - Obesity, unspecified, Z98.84 - Bariatric surgery status Lipid Panel Today E66.9 - Obesity, unspecified, Z98.84 - Bariatric surgery status IRON PROFILE Today E66.9 - Obesity, unspecified, Z98.84 - Bariatric surgery status Insulin Today E66.9 - Obesity, unspecified, Z98.84 - Bariatric surgery status Medications: New clotrimazole 1% 1 appl topical BID 45 grams 3RF
[2024-12-26 12:48] VITALS: BMI 37.9
--- OUTSIDE RECORDS SUMMARY | 2024-12-26 13:25 | XMS_ITS | Patient Health Record ---
Author Organization [facility] Address [address] [place] [address] Care Team Providers Care Heating Unit Installer Name Role Phone Vandana Castillo Primary Care Provider Unavail able SantaKaylie wu Unavailable [phone] Reason For Referral No Information Medications Medication SIG (Take, Route, Fr equency, Duration) Notes Start Date End Date Status Amoxicillin 500 MG TAKE ONE CAPSULE BY MOUTH 3 TIMES A DAY UNTIL FINISHED Oral; Duration: 7 Not-Taking Physical Therapy . . . 2-3x/week; Durat ion: 3-4 weeks 02/13/2020 Active Cimetidine 400 1 tablet orally by m outh BID; Duration: 30 days 01/22/2017 Not-Taking Social History Tobacco Use: Social History Observation Description Date Details (start date - stop date) Never Smoker NA - NA Tobacco Use/Smoking Question Answer Notes Are you a: nonsmoker Additional Findings: Tobacco Non-User Current no n-smoker Alcohol Screen Question Answer Notes Did you have a drink containing alcohol in the p ast year? Yes Points 0 Interpretation Negative Tobacco use other than smoking: Question Answer Notes Are you an other tobacco user? No Problems No Known Problems Plan Of Treatment Pending Test Test Name Order Date X ray : Foot, left 3V 02/13/2020 X ray : Foot, right 3V 07/16/2017 [id number] Destruction, 1-14 01/22/2017 [id number] Destruction, 1-14 02/19/2017 [id number] Destruction, 15 OR MORE 01/01 [id number] TENDON SHEATH/LIGAMENT 0 02/13/2020 Insurance Providers Payer Name Payer Address Payer Phone Subscriber Number Group Number Insured Name Patient Relationship to Insured Coverage Start Date Coverage End Date [facility] [address] [facility] [place] [id number] Elsie Cash Self - patient is the insured Medical (General) History Medical History History ICD Code Chicken pox Warts Surgical History Surgery Date(Month/Year) section 03/2014
--- OUTSIDE RECORDS SUMMARY | 2024-12-26 13:25 | XMS_ITS | Patient Health Record ---
Author Organization [facility] Address [address] [place] [address] Care Team Providers Care Handstitching Machine Collar Feller Name Role Phone Vandana Escalera Primary Care Provider Unavailabl e Allergies No Known Allergies Reason For Referral No Information Medications Medication SIG (Take, Route, Frequency, Duration) Notes Start Date End Date Status Vitamin A Active Phentermine HCl 37.5 MG 1 capsule Orally Once a day Not-Taking Problems Problem Type SNOMED Code ICD Code Onset Dates Problem Status W/U Status Risk Notes Problem [id number] Equinus deformity of left foot (M21.6X2) Active confirmed Plan Of Treatment Pending Test Test Name Order Date X ray : Foot, left 3v 06/20/2020 INJ TENDON SHEATH/LIGAMENT/FASCIA 2020 INJ TENDON SHEATH/LIGAMENT/FASCIA 2020 INJ TENDON SHEATH/LIGAMENT/FASCIA 2020 Insurance Providers Payer Name Payer Address Payer Phone Subscriber Number Group Number Insured Name Patient Relationship to Insured Coverage Start Date Coverage End Date [facility] [address] [place] [phone] [id number] Elsie Cash Self - patient is the insured Medications Administered Medication Instructions Date of Administration Dosage Notes Dexamethasone 08/06/2020 2 mg Dexamethasone 01/03/2021 2 mg Dexamethasone 04/12/2021 2 mg Kenalog 08/06/2020 20 mg Kenalog 01/03/2021 20 mg Kenalog 04/12/2021 20 mg Medical (General) History Medical History History ICD Code Edema Hypothyroidism Menorrhagia with regular cycle Obesity (BMI 30-39.9) Obesity, morbid, BMI 40.0-49.9 PCOS (polycystic ovarian syndrome) Varicose Vein Surgical History Surgery Date(Month/Year) gastric bypass surgery 2020
== END 2024-12-26 13:09 | disposition home or self-care (01) ==
LOC: HO.HBS 13:02
PROVIDERS: PCP Nurse Practitioner Family; Visit Provider Physician Assistant Surgical
DX: E66.9 Obesity, unspecified (principal); Z68.37 Body mass index [BMI] 37.0-37.9, adult; Z90.3 Acquired absence of stomach [part of]; Z98.84 Bariatric surgery status; L98.7 Excessive and redundant skin and subcutaneous tissue
CPT/HCPCS: 98967

== ENCOUNTER → 2024-12-26 13:02 | Outpatient (BNVA) | payer BC, SELFPAY | PROVIDERS: PCP Nurse Practitioner Family; Visit Provider Physician Assistant Surgical | DX: Z98.84 Bariatric surgery status (principal); E66.9 Obesity, unspecified | CPT/HCPCS: 98967 ==